=== PATIENT | female | born 1970 | race Two or more races ===

== ENCOUNTER 2021-03-02 12:31 | Emergency (ER) | payer OTHER ==
[~2021-03-02] VITALS: Ht 154.9 cm; Wt 74.5 kg
[2021-03-02 13:04] LABS: BASOPHILS % (AUTO) 1 % (0-1); EOSINOPHILS % (AUTO) 1 % (1-7); LYMPHOCYTES % (AUTO) 19 % (22-44); MEAN CORPUSCULAR HEMOGLOBIN 23.3 pg (27.0-34.8); MEAN CORPUSCULAR HGB CONC 31.4 g/dL (32.4-35.8); MEAN PLATELET VOLUME 8.7 fL (7.4-10.4); MONOCYTES % (AUTO) 7 % (2-9); NEUTROPHILS % (AUTO) 73 % (42-75); PLATELET COUNT 455 x10^3/uL (130-400); RED BLOOD COUNT 3.84 x10^6/uL (3.82-5.3); RED CELL DISTRIBUTION WIDTH 21.3 % (9.6-15.2)
[2021-03-02 13:10] LABS: ALANINE AMINOTRANSFERASE 19 U/L (12-78); ALBUMIN 3.1 g/dL (3.4-5.0); ANION GAP 3 mmol/L (5-15); CALCIUM 8.3 mg/dL (8.5-10.1); CHLORIDE 107 mmol/L (98-107); CREATININE 0.68 mg/dL (0.55-1.02)
[2021-03-02 13:14] LABS: ALKALINE PHOSPHATASE 69 U/L (45-117); BILIRUBIN,TOTAL 0.3 mg/dL (0.2-1.0); TOTAL PROTEIN 8.1 g/dL (6.4-8.2)
--- NOTE | 2021-03-02 13:57 | NUR ---
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
--- NOTE | 2021-03-02 14:06 | NUR ---
PLUMBER PIPE FITTING: PT IN US, US NOTIFIED TO TRANSPORT PT TO ROOM 25 WHEN US COMPLETED.
[2021-03-02 14:11] LABS: MD SCAN
--- NOTE | 2021-03-02 14:40 | NUR ---
PT ARRIVED TO ROOM FROM US. PT CO VAGINAL BLEEDING X6-8 WEEKS. PT STATED THAT SHE SOAKS THROUGH 1-2 PADS/DAY. PT CO MILD OCCASIONAL CRAMPING, BUT DENIES ANY SEVERE PAIN. PT DENIES , PAINFUL URINATION OR FEVER.
[2021-03-02 14:45] VITALS: BP 156/82
--- NOTE | 2021-03-02 16:06 | NUR ---
DISCHARGE INSTRUCTIONS REVEIWED WITH PT AND SPOUSE. ALL QUESTIONS ANSWERED AT THIS TIME
== END 2021-03-02 16:08 | disposition home or self-care (01) ==
LOC: ED 15:41
DX: N93.8 Other specified abnormal uterine and vaginal bleeding (principal); N92.1 Excessive and frequent menstruation with irregular cycle
CPT/HCPCS: 36415; 76830; 80053; 84703; 85025; 99284